=== PATIENT | female | born 1950 | race Caucasian/White ===

== ENCOUNTER 2017-08-29 07:35 | Day surgery (SDC) | payer BC ==
[~2017-08-29] VITALS: Ht 165.1 cm; Wt 65.5 kg
[~2017-08-29 07:35] MED LIST: ALEN70TA48 PO; CALC-331 PO; CALC-793 PO; FERR325T28 PO; HYDR200T84 PO; LIDOcaine 1% 30ml preserv. free vial SQ ONE; LIDOcaine 1%/PF 5ML 10 MG/ML VIAL SQ ONE; MELO-100 PO; OMEP20TA23 PO; PRED5TAB PO
[2017-08-29] MEDS ORDERED: normal saline 1000ml 1,000 ML IV PRN (08:05)
[2017-08-29] MEDS ORDERED: albumin (human) 25% 100 ML IV solution IV PRN (08:05)
[2017-08-29 08:15] VITALS: BP 111/67
[2017-08-29] MEDS ORDERED: FURO-150 PO (08:42)
[2017-08-29] MEDS ORDERED: SPIR50TA5 PO (08:42)
[2017-08-29] MEDS ORDERED: URSO300C2 PO (08:42)
[2017-08-29] MEDS ORDERED: LACT10SO6 PO (08:42)
[2017-08-29] MEDS ORDERED: GABA-532 PO (08:42)
== END 2017-08-29 10:15 | disposition home or self-care (01) ==
LOC: SSTAY O 07:35
PROVIDERS: ATTEND Radiology Diagnostic Radiology
DX: R18.8 Other ascites (principal); Z53.8 Procedure and treatment not carried out for other reasons; M81.0 Age-related osteoporosis without current pathological fracture; K21.9 Gastro-esophageal reflux disease without esophagitis; M85.88 Other specified disorders of bone density and structure, other site; G89.29 Other chronic pain; M19.90 Unspecified osteoarthritis, unspecified site; Z98.41 Cataract extraction status, right eye; Z98.42 Cataract extraction status, left eye; Z86.19 Personal history of other infectious and parasitic diseases; Z79.891 Long term (current) use of opiate analgesic; Z79.2 Long term (current) use of antibiotics; Z90.49 Acquired absence of other specified parts of digestive tract; Z87.891 Personal history of nicotine dependence; Z79.899 Other long term (current) drug therapy; Z98.890 Other specified postprocedural states
CPT/HCPCS: 76705; A6257; J2001; J7030

== ENCOUNTER 2017-09-01 21:46 | Inpatient (IN) | payer BC ==
[~2017-09-01] VITALS: Ht 172.7 cm; Wt 55.2 kg
[~2017-09-01 21:46] MED LIST changes: -ALEN70TA48 PO; +FURO-150 PO; +GABA-532 PO; +LACT10SO6 PO; -LIDOcaine 1% 30ml preserv. free vial SQ ONE; -LIDOcaine 1%/PF 5ML 10 MG/ML VIAL SQ ONE; -MELO-100 PO; +SPIR50TA5 PO; +URSO300C2 PO
[2017-09-01] MEDS ORDERED: normal saline 1000ml 1,000 ML IV ONE (22:05)
[2017-09-01] MEDS ORDERED: levoFLOXACIN-Levaquin 750MG/D5 150 ML IV ONE (22:05)
[2017-09-01] MEDS ORDERED: albuterol 2.5 MG/3 ML nebule NEB ONE (22:05)
[2017-09-01 22:36] LABS: BASOPHILS % (AUTO) 1.5 % (0-1); EOSINOPHILS # (AUTO) 0.1 X10'3 (0-0.9); EOSINOPHILS % (AUTO) 3.2 % (0-6); HEMATOCRIT 32.4 % (35.0-45.0); LYMPHOCYTES # (AUTO) 0.3 X10'3 (1.1-4.8); LYMPHOCYTES % (AUTO) 14.6 % (21-51); MEAN CORPUSCULAR HEMOGLOBIN 35.7 PG (27.0-31.0); MEAN CORPUSCULAR HGB CONC 34.1 % (33.0-36.5); MEAN CORPUSCULAR VOLUME 104.9 FL (78-98); MEAN PLATELET VOLUME 7.1 FL (7.4-10.4); MONOCYTES # (AUTO) 0.3 X10'3 (0-0.9); MONOCYTES % (AUTO) 12.2 % (2-12); NEUTROPHILS # (AUTO) 1.6 X10'3 (1.8-7.7); NEUTROPHILS % (AUTO) 68.5 % (42-75); PLATELET COUNT 123 X10'3 (140-440); RED BLOOD COUNT 3.08 X10'6 (4.20-5.60); RED CELL DISTRIBUTION WIDTH 16.1 % (11.5-14.5); WHITE BLOOD COUNT 2.3 X10'3 (4.5-11.0)
[2017-09-01 23:00] LABS: ALANINE AMINOTRANSFERASE 19 U/L (12-78); ALBUMIN 1.5 G/DL (3.4-5.0); ALKALINE PHOSPHATASE 138 IU/L (46-116); ANION GAP 7 (8-16); CALCIUM 7.4 MG/DL (8.5-10.1); CHLORIDE 102 MMOL/L (99-107); CREATININE 0.89 MG/DL (0.40-0.90); MAGNESIUM 1.5 MG/DL (1.5-2.4); POTASSIUM 3.3 MMOL/L (3.5-5.1); SODIUM 131 MMOL/L (135-145); TOTAL CARBON DIOXIDE 22.1 MMOL/L (24-32); eGFR 64 ML/MIN
[2017-09-01 23:02] LABS: ALBUMIN/GLOBULIN RATIO 0.3 (1.1-1.5); ASPARTATE AMINO TRANSFERASE 37 U/L (10-37); BILIRUBIN,TOTAL 2.2 MG/DL (0.1-1.0); BLOOD UREA NITROGEN 9 MG/DL (7-18); BUN/CREATININE RATIO 10.1 (6.6-38.0); GLUCOSE 125 MG/DL (70-104); TOTAL PROTEIN 7.1 G/DL (6.4-8.2)
[2017-09-01] MEDS ORDERED: acetaminophen/codeine 120mg/12mg per 5ml cup PO ONE (23:40)
[2017-09-02] LABS: INR 1.4 INR; PROTHROMBIN TIME 13.9 SECONDS (9.0-12.0)
[2017-09-02] MEDS ORDERED: GABA-532 PO (00:02)
[2017-09-02 00:13] LABS: PLATELET ESTIMATE DECREASED; TOTAL CELLS COUNTED 100
[2017-09-02 00:55] LABS: URINE HCG NEGATIVE (NEG)
[2017-09-02 00:58] LABS: COLOR,URINE YELLOW (Yellow); GLUCOSE, URINE 100 mg/dl (Neg); KETONES,URINE NEGATIVE (Neg); LEUKOCYTE ESTERASE ,URINE NEGATIVE (Neg); NITRITES, URINE NEGATIVE (Neg); OCCULT BLOOD,URINE LARGE (Neg); PROTEIN,URINE NEGATIVE (Neg); UROBILINOGEN,URINE >=8.0 E.U/dL (0.2-1.0)
[2017-09-02] MEDS ORDERED: potassium Cl 20mEq in NS 1,000 ML IV SCH (01:01)
[2017-09-02] MEDS ORDERED: magnesium hydroxide 30ml (MOM) UD suspension PO PRN (01:05)
[2017-09-02] MEDS ORDERED: HYDROcodone/acetaminophen 5mg/325mg tablet PO PRN (01:05)
[2017-09-02] MEDS ORDERED: acetaminophen 325mg tablet PO PRN ×2 (01:05)
[2017-09-02] MEDS ORDERED: bisacodyl 10mg suppository rectal RC PRN (01:05)
[2017-09-02] MEDS ORDERED: mag hydrox/Alum hydrox/simeth 30ml oral suspension PO PRN (01:05)
[2017-09-02] MEDS ORDERED: diphenhydrAMINE 25mg capsule PO PRN (01:05)
[2017-09-02] MEDS ORDERED: ondansetron/PF 4mg/2ml inj IV PRN (01:05)
[2017-09-02] MEDS ORDERED: HYDROcodone/acetaminophen 10/325mg tab PO PRN (01:05)
[2017-09-02] MEDS ORDERED: acetaminophen 650mg rectal suppository RC PRN (01:05)
[2017-09-02] MEDS ORDERED: metoclopramide 5 mg/ml inj IV PRN (01:05)
[2017-09-02] MEDS ORDERED: morphine 4 MG/ML inj SYRINge IV PRN ×2 (01:05)
[2017-09-02] MEDS ORDERED: diphenhydrAMINE 50 mg/ml inj IV PRN (01:05)
[2017-09-02] MEDS ORDERED: HYDROmorphone inj. 0.5 MG/0.5 ML DISP.SYRIN IV PRN ×2 (01:05)
[2017-09-02 01:06] LABS: CLARITY,URINE SLIGHTLY CLOUDY (Clear); UA COLLECTION TYPE CLN CATCH MIDSTREAM
[2017-09-02 01:07] LABS: BACTERIA,URINE FEW /HPF (Neg); SQUAMOUS EPITHELIAL CELL,UR FEW /LPF (FEW); WBC,URINE NONE SEEN /HPF (0-4)
[2017-09-02] MEDS ORDERED: magnesium 4gm in 100ml NS 100 ML IV PRN (01:10)
[2017-09-02] MEDS ORDERED: potassium Cl 20 mEq SR tablet PO PRN (01:10)
[2017-09-02] MEDS ORDERED: potassium Cl 40MEQ/NS 500ml 500 ML IV PRN ×2 (01:10)
[2017-09-02] MEDS ORDERED: magnesium 1gm/100ml D5W IVPB 50 ML IV PRN (01:10)
[2017-09-02] MEDS ORDERED: magnesium Cl slow-release 64mg tablet PO PRN (01:10)
[2017-09-02 01:36] LABS: PHOSPHORUS 2.3 MG/DL (2.3-4.5)
[2017-09-02 01:47] VITALS: BP 94/54
[2017-09-02] MEDS ORDERED: magnesium 1gm/100ml D5W IVPB 100 ML IV ONE (01:51)
[2017-09-02] MEDS: guaiFENesin/codeine phos 10ml UD oral syrup PO PRN ×4 (02:57→19:36)
[2017-09-02 06:00] VITALS: BP 92/60
[2017-09-02 07:10] VITALS: BP 110/68
[2017-09-02] MEDS: pantoprazole 40mg Tablet.DR PO SCH (07:29)
[2017-09-02] MEDS: furosemide 20 MG/2 ML vial IV SCH (07:30)
[2017-09-02] MEDS: docusate sod 100mg capsule PO SCH ×2 (07:33→19:33)
[2017-09-02] MEDS: K and/or MAG REPLACEMENT MC SCH (08:00)
[2017-09-02] MEDS ORDERED: predniSONE 1 mg tablet PO SCH (08:00)
[2017-09-02] MEDS ORDERED: aspirin 81mg tab.chew PO SCH (08:30)
[2017-09-02] MEDS: hydroxychloroquine 200mg tablet PO SCH (08:42)
[2017-09-02] MEDS: Ursodiol 300mg capsule PO SCH ×3 (08:43→19:34)
[2017-09-02 08:57] LABS: BASOPHILS % (AUTO) 0.6 % (0-1); EOSINOPHILS # (AUTO) 0.1 X10'3 (0-0.9); EOSINOPHILS % (AUTO) 4.4 % (0-6); HEMATOCRIT 32.8 % (35.0-45.0); HEMOGLOBIN 11.5 g/dl (12.0-16.0); LYMPHOCYTES # (AUTO) 0.5 X10'3 (1.1-4.8); LYMPHOCYTES % (AUTO) 16.7 % (21-51); MEAN CORPUSCULAR HEMOGLOBIN 36.7 PG (27.0-31.0); MEAN CORPUSCULAR HGB CONC 35.2 % (33.0-36.5); MEAN CORPUSCULAR VOLUME 104.4 FL (78-98); MEAN PLATELET VOLUME 6.9 FL (7.4-10.4); MONOCYTES # (AUTO) 0.3 X10'3 (0-0.9); MONOCYTES % (AUTO) 12.5 % (2-12); NEUTROPHILS # (AUTO) 1.8 X10'3 (1.8-7.7); NEUTROPHILS % (AUTO) 65.8 % (42-75); PLATELET COUNT 119 X10'3 (140-440); RED BLOOD COUNT 3.14 X10'6 (4.20-5.60); RED CELL DISTRIBUTION WIDTH 15.7 % (11.5-14.5); WHITE BLOOD COUNT 2.7 X10'3 (4.5-11.0)
[2017-09-02 09:14] LABS: ALANINE AMINOTRANSFERASE 19 U/L (12-78); ALBUMIN 1.6 G/DL (3.4-5.0); ALKALINE PHOSPHATASE 139 IU/L (46-116); ANION GAP 10 (8-16); CALCIUM 7.8 MG/DL (8.5-10.1); CHLORIDE 101 MMOL/L (99-107); CREATININE 0.84 MG/DL (0.40-0.90); POTASSIUM 3.1 MMOL/L (3.5-5.1); SODIUM 133 MMOL/L (135-145); TOTAL CARBON DIOXIDE 22.5 MMOL/L (24-32); eGFR 68 ML/MIN
[2017-09-02 09:22] LABS: TROPONIN I 0.21 NG/ML (0.0-0.05)
[2017-09-02] MEDS: potassium Cl 20 mEq SR tablet PO PRN ×3 (09:26→22:49)
[2017-09-02 09:33] LABS: ALBUMIN/GLOBULIN RATIO 0.3 (1.1-1.5); BILIRUBIN,TOTAL 2.6 MG/DL (0.1-1.0); BLOOD UREA NITROGEN 6 MG/DL (7-18); BUN/CREATININE RATIO 7.1 (6.6-38.0); GLUCOSE 111 MG/DL (70-104); TOTAL CELLS COUNTED 100; TOTAL PROTEIN 7.6 G/DL (6.4-8.2)
[2017-09-02 09:34] LABS: ANISOCYTOSIS 1+; ASPARTATE AMINO TRANSFERASE 47 U/L (10-37); PLATELET ESTIMATE DECREASED; POLYCHROMASIA 1+; ROULEAUX 1+
[2017-09-02 10:00] VITALS: BP 86/53
[2017-09-02] MEDS ORDERED: ipratropium/albuterol 3ml nebule NEB PRN (10:40)
[2017-09-02] MEDS: methylPREDNISolone sod succ 125mg/2ml vial IV SCH (12:38)
[2017-09-02] MEDS ORDERED: CAFFEINE CITRATE 60 MG/3 ML injection vial IV PRN (17:35)
[2017-09-02] MEDS ORDERED: regadenoson 0.4mg/5ml syringe IV PRN (17:35)
[2017-09-02] MEDS ORDERED: metoprolol tartrate 1mg/ml inj IV PRN (17:35)
[2017-09-02] MEDS ORDERED: nitroGLYCERIN 0.4mg SUBLingual tab SL PRN (17:35)
[2017-09-02 19:00] VITALS: BP 97/65
[2017-09-02] MEDS: lactobacillus rhamnosus 10,000 MMU CELLS/CAPSULE PO SCH (19:33)
[2017-09-02] MEDS ORDERED: temazepam 15mg capsule PO PRN (21:00)
[2017-09-02] MEDS ORDERED: levoFLOXACIN-Levaquin 500mg/D5 100 ML IV SCH (21:00)
[2017-09-02] MEDS ORDERED: gabapentin 300mg capsule PO SCH (21:00)
[2017-09-02 23:00] VITALS: BP 94/65
[2017-09-03] VITALS (17 sets, daily range): BP systolic 88–116; BP diastolic 49–70
[2017-09-03] MEDS: guaiFENesin/codeine phos 10ml UD oral syrup PO PRN ×2 (00:08→14:30)
[2017-09-03 05:06] LABS: BASOPHILS % (AUTO) 0.1 % (0-1); EOSINOPHILS % (AUTO) 0.3 % (0-6); HEMATOCRIT 31.6 % (35.0-45.0); HEMOGLOBIN 10.8 g/dl (12.0-16.0); LYMPHOCYTES # (AUTO) 0.4 X10'3 (1.1-4.8); LYMPHOCYTES % (AUTO) 15.4 % (21-51); MEAN CORPUSCULAR HEMOGLOBIN 35.6 PG (27.0-31.0); MEAN CORPUSCULAR HGB CONC 34.1 % (33.0-36.5); MEAN CORPUSCULAR VOLUME 104.5 FL (78-98); MEAN PLATELET VOLUME 7.5 FL (7.4-10.4); MONOCYTES # (AUTO) 0.2 X10'3 (0-0.9); MONOCYTES % (AUTO) 6.9 % (2-12); NEUTROPHILS # (AUTO) 1.8 X10'3 (1.8-7.7); NEUTROPHILS % (AUTO) 77.3 % (42-75); PLATELET COUNT 101 X10'3 (140-440); RED BLOOD COUNT 3.03 X10'6 (4.20-5.60); WHITE BLOOD COUNT 2.3 X10'3 (4.5-11.0)
[2017-09-03 05:58] LABS: ALANINE AMINOTRANSFERASE 18 U/L (12-78); ALBUMIN 1.5 G/DL (3.4-5.0); ALKALINE PHOSPHATASE 123 IU/L (46-116); ANION GAP 6 (8-16); CALCIUM 8.1 MG/DL (8.5-10.1); CHLORIDE 104 MMOL/L (99-107); CREATININE 0.64 MG/DL (0.40-0.90); MAGNESIUM 1.7 MG/DL (1.5-2.4); POTASSIUM 4.1 MMOL/L (3.5-5.1); SODIUM 133 MMOL/L (135-145); TOTAL CARBON DIOXIDE 22.6 MMOL/L (24-32); eGFR > 90 ML/MIN
[2017-09-03 06:11] LABS: ASPARTATE AMINO TRANSFERASE 38 U/L (10-37); GLUCOSE 110 MG/DL (70-104)
[2017-09-03 06:13] LABS: ALBUMIN/GLOBULIN RATIO 0.3 (1.1-1.5)
[2017-09-03 07:02] LABS: BLOOD UREA NITROGEN 7 MG/DL (7-18); BUN/CREATININE RATIO 10.9 (6.6-38.0)
[2017-09-03] MEDS: furosemide 20 MG/2 ML vial IV SCH (07:19)
[2017-09-03] MEDS: hydroxychloroquine 200mg tablet PO SCH (07:30)
[2017-09-03] MEDS: methylPREDNISolone sod succ 125mg/2ml vial IV SCH (07:50)
[2017-09-03] MEDS: pantoprazole 40mg Tablet.DR PO SCH (07:51)
[2017-09-03] MEDS: Ursodiol 300mg capsule PO SCH ×2 (07:52→12:18)
[2017-09-03 07:53] LABS: ANISOCYTOSIS 1+; PLATELET ESTIMATE DECREASED; POLYCHROMASIA FEW; TOTAL CELLS COUNTED 100
[2017-09-03] MEDS: K and/or MAG REPLACEMENT MC SCH (09:27)
[2017-09-03] MEDS ORDERED: CAFFEINE CITRATE 60 MG/3 ML injection vial IV ONE (09:47)
[2017-09-03] MEDS ORDERED: regadenoson 0.4mg/5ml syringe IV ONE (09:47)
[2017-09-03] MEDS: docusate sod 100mg capsule PO SCH (10:53)
[2017-09-03] MEDS: lactobacillus rhamnosus 10,000 MMU CELLS/CAPSULE PO SCH (10:53)
[2017-09-03] MEDS ORDERED: PRED10TA23 PO (15:55)
[2017-09-03] MEDS ORDERED: LEVO500T89 PO (16:05)
[2017-09-03] MEDS ORDERED: guaiFENesin/codeine oral syrup PO (16:12)
[2017-09-04] MEDS ORDERED: levoFLOXACIN 500mg tablet PO SCH (11:00)
== END 2017-09-03 16:35 | disposition home or self-care (01) | DRG 871 ==
LOC: ER 21:47 → ED HOLD 09-02 01:01 → ORTHO 4S 09-02 01:46 → PCU 3S 09-02 15:35
PROVIDERS: ADMIT Family Medicine; ATTEND Family Medicine
PROC: 4A02XM4 Measurement of Cardiac Total Activity, External Approach (ICD-10-PCS; principal; 2017-09-03)
PROC: 3E073KZ Introduction of Other Diagnostic Substance into Coronary Artery, Percutaneous Approach (ICD-10-PCS; 2017-09-03)
DX: A41.9 Sepsis, unspecified organism (principal); J18.1 Lobar pneumonia, unspecified organism; Z68.1 Body mass index [BMI] 19.9 or less, adult; D61.818 Other pancytopenia; D68.9 Coagulation defect, unspecified; E87.1 Hypo-osmolality and hyponatremia; J90 Pleural effusion, not elsewhere classified; K76.6 Portal hypertension; K83.0 Cholangitis; R18.8 Other ascites; I31.9 Disease of pericardium, unspecified; E87.6 Hypokalemia; J42 Unspecified chronic bronchitis; K31.9 Disease of stomach and duodenum, unspecified; K57.30 Diverticulosis of large intestine without perforation or abscess without bleeding; M54.9 Dorsalgia, unspecified; K72.90 Hepatic failure, unspecified without coma; K74.60 Unspecified cirrhosis of liver; M32.9 Systemic lupus erythematosus, unspecified; R65.20 Severe sepsis without septic shock; G89.29 Other chronic pain; M19.90 Unspecified osteoarthritis, unspecified site; Z79.899 Other long term (current) drug therapy; Z87.891 Personal history of nicotine dependence; Z76.82 Awaiting organ transplant status
CPT/HCPCS: 36415; 71045; 71250; 74176; 78452; 80053; 81001; 81025; 83605; 83690; 83735; 83880; 84100; 84145; 84443; 84484; 85025; 85610; 85730; 87040; 87070; 93005; 93017; 93306; 94640; 94760; 96365; 99291; A9500; J1940; J1956; J2930; J7030; J7512

== ENCOUNTER 2017-10-09 07:08 | Day surgery (SDC) | payer BC ==
[~2017-10-09] VITALS: Ht 165.1 cm; Wt 55.3 kg
[~2017-10-09 07:08] MED LIST changes: -CALC-331 PO; -CALC-793 PO; -FERR325T28 PO; -LACT10SO6 PO; +LIDOcaine 1%/PF 5ML 10 MG/ML VIAL SQ ONE; +guaiFENesin/codeine oral syrup PO
[2017-10-09] MEDS ORDERED: GABA-534 PO (07:31)
[2017-10-09 07:35] VITALS: BP 114/75
[2017-10-09] MEDS ORDERED: albumin (human) 25% 100 ML IV solution IV PRN (07:40)
[2017-10-09 08:30] VITALS: BP 115/75
[2017-10-09 08:45] VITALS: BP 108/71
[2017-10-09 08:52] VITALS: BP 125/71
[2017-10-09 08:55] VITALS: BP 125/71
[2017-10-09 09:00] VITALS: BP 114/73
== END 2017-10-09 09:06 | disposition home or self-care (01) ==
LOC: SSTAY O 07:08
PROVIDERS: ATTEND Radiology Diagnostic Radiology
DX: R18.8 Other ascites (principal); M81.0 Age-related osteoporosis without current pathological fracture; K21.9 Gastro-esophageal reflux disease without esophagitis; M85.88 Other specified disorders of bone density and structure, other site; M19.90 Unspecified osteoarthritis, unspecified site; F32.9 Major depressive disorder, single episode, unspecified; F41.8 Other specified anxiety disorders; Z86.19 Personal history of other infectious and parasitic diseases; Z79.2 Long term (current) use of antibiotics; Z90.49 Acquired absence of other specified parts of digestive tract; Z98.41 Cataract extraction status, right eye; Z98.42 Cataract extraction status, left eye; Z79.891 Long term (current) use of opiate analgesic; Z87.891 Personal history of nicotine dependence; Z79.899 Other long term (current) drug therapy; Z98.890 Other specified postprocedural states
CPT/HCPCS: 49083; A6257; J2001

== ENCOUNTER 2017-10-25 08:21 | Day surgery (SDC) | payer MEDICARE ==
[2017-10-25] VITALS (7 sets, daily range): BP systolic 109–121; BP diastolic 69–81
[~2017-10-25] VITALS: Ht 165.1 cm; Wt 55.2 kg
[~2017-10-25 08:21] MED LIST changes: -GABA-532 PO; +GABA-534 PO; -LIDOcaine 1%/PF 5ML 10 MG/ML VIAL SQ ONE; -guaiFENesin/codeine oral syrup PO
[2017-10-25] MEDS ORDERED: normal saline 1000ml 1,000 ML IV PRN (08:40)
[2017-10-25] MEDS ORDERED: albumin (human) 25% 100 ML IV solution IV PRN (08:40)
[2017-10-25] MEDS ORDERED: LIDOcaine 1%/PF 5ML 10 MG/ML VIAL SQ ONE (09:00)
== END 2017-10-25 10:10 | disposition home or self-care (01) ==
LOC: SSTAY O 08:21
PROVIDERS: ATTEND Radiology Diagnostic Radiology
DX: R18.8 Other ascites (principal); M81.0 Age-related osteoporosis without current pathological fracture; K21.9 Gastro-esophageal reflux disease without esophagitis; M85.88 Other specified disorders of bone density and structure, other site; M19.90 Unspecified osteoarthritis, unspecified site; F32.9 Major depressive disorder, single episode, unspecified; F41.8 Other specified anxiety disorders; Z86.19 Personal history of other infectious and parasitic diseases; Z98.41 Cataract extraction status, right eye; Z98.42 Cataract extraction status, left eye; Z79.2 Long term (current) use of antibiotics; Z87.01 Personal history of pneumonia (recurrent); Z90.49 Acquired absence of other specified parts of digestive tract; Z79.891 Long term (current) use of opiate analgesic; Z87.891 Personal history of nicotine dependence; Z98.890 Other specified postprocedural states; Z79.899 Other long term (current) drug therapy
CPT/HCPCS: 49083; A6257; J2001; J7030

== ENCOUNTER 2017-11-13 07:43 | Day surgery (SDC) | payer MEDICARE ==
[~2017-11-13] VITALS: Ht 165.1 cm; Wt 55.5 kg
[2017-11-13 08:04] VITALS: BP 102/62
[2017-11-13] MEDS ORDERED: LIDOcaine 1% 30ml preserv. free vial SQ PRN (08:05)
[2017-11-13] MEDS ORDERED: albumin (human) 25% 100 ML IV solution IV PRN (08:05)
[2017-11-13] MEDS ORDERED: normal saline 1000ml 1,000 ML IV PRN (08:05)
[2017-11-13] MEDS ORDERED: LIDOcaine 1%/PF 5ML 10 MG/ML VIAL SQ PRN (08:15)
[2017-11-13] MEDS ORDERED: LIDOcaine 1% (10mg/ml)w/preservative injection 20ml MDV SQ PRN (08:20)
[2017-11-13 08:59] VITALS: BP 102/67
[2017-11-13 09:14] VITALS: BP 104/62
[2017-11-13 09:19] VITALS: BP 107/64
[2017-11-13 09:29] VITALS: BP 108/63
[2017-11-13 09:39] VITALS: BP 100/59
== END 2017-11-13 09:41 | disposition home or self-care (01) ==
LOC: SSTAY O 07:43
PROVIDERS: ATTEND Radiology Vascular & Interventional Radiology
DX: R18.8 Other ascites (principal); M81.0 Age-related osteoporosis without current pathological fracture; K21.9 Gastro-esophageal reflux disease without esophagitis; M85.88 Other specified disorders of bone density and structure, other site; M19.90 Unspecified osteoarthritis, unspecified site; G89.29 Other chronic pain; F32.9 Major depressive disorder, single episode, unspecified; F41.8 Other specified anxiety disorders; Z86.69 Personal history of other diseases of the nervous system and sense organs; Z87.891 Personal history of nicotine dependence; Z86.19 Personal history of other infectious and parasitic diseases; Z90.49 Acquired absence of other specified parts of digestive tract; Z79.891 Long term (current) use of opiate analgesic; Z98.890 Other specified postprocedural states; Z79.899 Other long term (current) drug therapy
CPT/HCPCS: 49083; A6257; J2001; J7030

== ENCOUNTER 2017-11-27 08:02 | Day surgery (SDC) | payer MEDICARE ==
[~2017-11-27] VITALS: Ht 165.1 cm; Wt 56.0 kg
[~2017-11-27 08:02] MED LIST changes: +LIDOcaine 1% (10mg/ml)w/preservative injection 20ml MDV SQ ONE
[2017-11-27] MEDS ORDERED: albumin (human) 25% 100 ML IV solution IV PRN (08:20)
[2017-11-27] MEDS ORDERED: normal saline 1000ml 1,000 ML IV PRN (08:20)
[2017-11-27 08:21] VITALS: BP 103/72
[2017-11-27 08:40] VITALS: BP 109/69
[2017-11-27 08:45] VITALS: BP 101/69
[2017-11-27 09:00] VITALS: BP 94/50
[2017-11-27 09:15] VITALS: BP 103/72
== END 2017-11-27 09:30 | disposition home or self-care (01) ==
LOC: SSTAY O 08:02
PROVIDERS: ATTEND Radiology Vascular & Interventional Radiology
DX: R18.8 Other ascites (principal); K21.9 Gastro-esophageal reflux disease without esophagitis; M81.0 Age-related osteoporosis without current pathological fracture; M85.88 Other specified disorders of bone density and structure, other site; M19.90 Unspecified osteoarthritis, unspecified site; F41.8 Other specified anxiety disorders; F32.9 Major depressive disorder, single episode, unspecified; Z86.69 Personal history of other diseases of the nervous system and sense organs; Z87.891 Personal history of nicotine dependence; Z86.19 Personal history of other infectious and parasitic diseases; Z98.41 Cataract extraction status, right eye; Z98.42 Cataract extraction status, left eye; Z90.49 Acquired absence of other specified parts of digestive tract; Z79.891 Long term (current) use of opiate analgesic; Z98.890 Other specified postprocedural states; Z79.899 Other long term (current) drug therapy
CPT/HCPCS: 49083; J2001; J7030

== ENCOUNTER 2017-12-13 08:09 | Day surgery (SDC) | payer MEDICARE ==
[~2017-12-13] VITALS: Ht 165.1 cm; Wt 56.8 kg
[~2017-12-13 08:09] MED LIST changes: -LIDOcaine 1% (10mg/ml)w/preservative injection 20ml MDV SQ ONE
[2017-12-13 08:38] VITALS: BP 104/67
[2017-12-13 09:00] VITALS: BP 111/76
[2017-12-13] MEDS ORDERED: albumin (human) 25% 100 ML IV solution IV PRN (09:00)
[2017-12-13] MEDS ORDERED: LIDOcaine 1% 30ml preserv. free vial SQ ONE (09:00)
[2017-12-13] MEDS ORDERED: normal saline 1000ml 1,000 ML IV PRN (09:00)
[2017-12-13 09:15] VITALS: BP 103/68
[2017-12-13 09:30] VITALS: BP 107/68
[2017-12-13 09:45] VITALS: BP 112/74
== END 2017-12-13 09:55 | disposition home or self-care (01) ==
LOC: SSTAY O 08:09
PROVIDERS: ATTEND Radiology Vascular & Interventional Radiology
DX: R18.8 Other ascites (principal); M81.0 Age-related osteoporosis without current pathological fracture; K21.9 Gastro-esophageal reflux disease without esophagitis; M85.88 Other specified disorders of bone density and structure, other site; M19.90 Unspecified osteoarthritis, unspecified site; F32.9 Major depressive disorder, single episode, unspecified; F41.8 Other specified anxiety disorders; Z86.2 Personal history of diseases of the blood and blood-forming organs and certain disorders involving the immune mechanism; Z86.69 Personal history of other diseases of the nervous system and sense organs; Z98.41 Cataract extraction status, right eye; Z98.42 Cataract extraction status, left eye; Z90.49 Acquired absence of other specified parts of digestive tract; Z79.891 Long term (current) use of opiate analgesic; Z87.891 Personal history of nicotine dependence; Z86.19 Personal history of other infectious and parasitic diseases; Z98.890 Other specified postprocedural states; Z79.899 Other long term (current) drug therapy
CPT/HCPCS: 49083; J3490; J7030

== ENCOUNTER 2018-01-01 07:43 | Day surgery (SDC) | payer MEDICARE ==
[~2018-01-01] VITALS: Ht 165.1 cm; Wt 56.4 kg
[2018-01-01 07:52] VITALS: BP 112/75
[2018-01-01] MEDS ORDERED: albumin (human) 25% 100 ML IV solution IV PRN (08:25)
[2018-01-01] MEDS ORDERED: normal saline 1000ml 1,000 ML IV PRN (08:25)
[2018-01-01 08:30] VITALS: BP 105/70
[2018-01-01 08:45] VITALS: BP 111/73
[2018-01-01 09:00] VITALS: BP 111/73
[2018-01-01] MEDS ORDERED: LIDOcaine 1% 30ml preserv. free vial SQ ONE (09:00)
[2018-01-01 09:15] VITALS: BP 110/77
[2018-01-01 09:30] VITALS: BP 122/77
== END 2018-01-01 09:30 | disposition home or self-care (01) ==
LOC: SSTAY O 07:43
PROVIDERS: ATTEND Radiology Diagnostic Radiology
DX: R18.8 Other ascites (principal); M81.0 Age-related osteoporosis without current pathological fracture; K21.9 Gastro-esophageal reflux disease without esophagitis; F32.9 Major depressive disorder, single episode, unspecified; F41.8 Other specified anxiety disorders; M85.88 Other specified disorders of bone density and structure, other site; M19.90 Unspecified osteoarthritis, unspecified site; Z98.41 Cataract extraction status, right eye; Z90.49 Acquired absence of other specified parts of digestive tract; Z86.69 Personal history of other diseases of the nervous system and sense organs; Z79.891 Long term (current) use of opiate analgesic; Z87.891 Personal history of nicotine dependence; Z87.09 Personal history of other diseases of the respiratory system; Z98.42 Cataract extraction status, left eye; Z86.19 Personal history of other infectious and parasitic diseases; Z79.899 Other long term (current) drug therapy; Z98.890 Other specified postprocedural states
CPT/HCPCS: 49083; J3490; J7030

== ENCOUNTER 2018-01-18 07:46 | Day surgery (SDC) | payer MEDICARE ==
[~2018-01-18] VITALS: Ht 165.1 cm; Wt 58.8 kg
[~2018-01-18 07:46] MED LIST changes: +LIDOcaine 1% 30ml preserv. free vial SQ STA
[2018-01-18 08:10] VITALS: BP 99/64
[2018-01-18] MEDS ORDERED: normal saline 1000ml 1,000 ML IV PRN (08:10)
[2018-01-18] MEDS ORDERED: albumin (human) 25% 100 ML IV solution IV PRN (08:10)
[2018-01-18] MEDS ORDERED: CIPR-230 PO (08:31)
[2018-01-18 08:41] VITALS: BP 98/60
[2018-01-18 08:45] VITALS: BP 95/59
[2018-01-18 09:00] VITALS: BP 99/62
[2018-01-18 09:23] VITALS: BP 94/62
== END 2018-01-18 09:55 | disposition home or self-care (01) ==
LOC: SSTAY O 07:46
PROVIDERS: ATTEND Radiology Diagnostic Radiology
DX: R18.8 Other ascites (principal); M81.0 Age-related osteoporosis without current pathological fracture; K21.9 Gastro-esophageal reflux disease without esophagitis; M85.88 Other specified disorders of bone density and structure, other site; M19.90 Unspecified osteoarthritis, unspecified site; F32.9 Major depressive disorder, single episode, unspecified; F41.8 Other specified anxiety disorders; Z90.49 Acquired absence of other specified parts of digestive tract; Z98.41 Cataract extraction status, right eye; Z98.42 Cataract extraction status, left eye; Z86.19 Personal history of other infectious and parasitic diseases; Z86.010 Personal history of colon polyps; Z79.891 Long term (current) use of opiate analgesic; Z79.2 Long term (current) use of antibiotics; Z86.69 Personal history of other diseases of the nervous system and sense organs; Z87.891 Personal history of nicotine dependence; Z87.09 Personal history of other diseases of the respiratory system; Z98.890 Other specified postprocedural states; Z79.899 Other long term (current) drug therapy
CPT/HCPCS: 49083; J3490; J7030; P9047

== ENCOUNTER 2018-01-26 12:37 | Outpatient (CLI) | payer MEDICARE ==
[~2018-01-26 12:37] MED LIST changes: +CIPR-230 PO; -LIDOcaine 1% 30ml preserv. free vial SQ STA
== END 2018-01-26 23:59 | disposition home or self-care (01) ==
LOC: CARD DIAG 12:37
PROVIDERS: ATTEND Nurse Practitioner
DX: I08.1 Rheumatic disorders of both mitral and tricuspid valves (principal); K74.60 Unspecified cirrhosis of liver; Z87.891 Personal history of nicotine dependence; Z79.899 Other long term (current) drug therapy
CPT/HCPCS: 93306

== ENCOUNTER 2018-02-07 08:52 | Outpatient (CLI) | payer MEDICARE | END 2018-02-07 23:59 | disposition home or self-care (01) | LOC: RAD 08:52 | PROVIDERS: ATTEND Nurse Practitioner | DX: K74.60 Unspecified cirrhosis of liver (principal); Z53.9 Procedure and treatment not carried out, unspecified reason ==

== ENCOUNTER 2018-02-09 07:28 | Day surgery (SDC) | payer MEDICARE ==
[~2018-02-09] VITALS: Ht 165.1 cm; Wt 55.1 kg
[~2018-02-09 07:28] MED LIST changes: +LIDOcaine 1% 30ml preserv. free vial SQ STA
[2018-02-09] MEDS ORDERED: albumin (human) 25% 100 ML IV solution IV PRN (07:50)
[2018-02-09] MEDS ORDERED: normal saline 1000ml 1,000 ML IV PRN (07:50)
== END 2018-02-09 08:33 | disposition home or self-care (01) ==
LOC: SSTAY O 07:28
PROVIDERS: ATTEND Radiology Diagnostic Radiology
DX: R18.8 Other ascites (principal); M81.0 Age-related osteoporosis without current pathological fracture; M85.88 Other specified disorders of bone density and structure, other site; Z79.2 Long term (current) use of antibiotics; Z87.09 Personal history of other diseases of the respiratory system; Z86.69 Personal history of other diseases of the nervous system and sense organs; Z90.49 Acquired absence of other specified parts of digestive tract; Z79.891 Long term (current) use of opiate analgesic; Z79.899 Other long term (current) drug therapy; Z98.890 Other specified postprocedural states
CPT/HCPCS: 76705; J3490; J7030

== ENCOUNTER 2018-03-26 16:44 | Inpatient (IN) | payer MEDICARE | END 2018-04-20 12:30 | disposition E | LOC: ICU 2S 23:16 → SUR 3N 03-29 18:04 → ICU 2S 04-02 10:37 → ER 16:44 | PROC: 0WQF0ZZ Repair Abdominal Wall, Open Approach (ICD-10-PCS; principal; 2018-03-26 23:04) | PROC: 0W9G0ZZ Drainage of Peritoneal Cavity, Open Approach (ICD-10-PCS; 2018-03-26 23:04) | PROC: 5A1955Z Respiratory Ventilation, Greater than 96 Consecutive Hours (ICD-10-PCS; 2018-03-26 23:04) | DX: A41.9 Sepsis, unspecified organism (principal); E43 Unspecified severe protein-calorie malnutrition; J80 Acute respiratory distress syndrome; J18.9 Pneumonia, unspecified organism; R65.21 Severe sepsis with septic shock; N17.0 Acute kidney failure with tubular necrosis; K42.0 Umbilical hernia with obstruction, without gangrene; R18.8 Other ascites; E87.4 Mixed disorder of acid-base balance; K72.90 Hepatic failure, unspecified without coma; K74.60 Unspecified cirrhosis of liver; K57.90 Diverticulosis of intestine, part unspecified, without perforation or abscess without bleeding; M32.9 Systemic lupus erythematosus, unspecified; Y95 Nosocomial condition ==